=== PATIENT | male | born 1955 | race Caucasian/White ===

== ENCOUNTER 2024-05-31 20:34 | Inpatient (IN) | payer MEDICARE, OTHER ==
[~2024-05-31] VITALS: Ht 182.9 cm; Wt 113.4 kg
[~2024-05-31 20:34] MED LIST: LOSA1TAB2 PO; SULF1TAB44 PO; VALS80TA2 PO
[2024-05-31] MEDS ORDERED: LOSA50TA39 PO (20:46)
[2024-05-31] MEDS: IV NORMAL SALINE 1000 ML BAG IV ONE (21:15)
[2024-05-31 21:48] LABS: BASOPHILS # (AUTO) 0.1 K/UL (0.0-0.2); BASOPHILS % (AUTO) 0.9 % (0.0-2.0); DIFFERENTIAL COMMENT 1; EOSINOPHILS # (AUTO) 0.2 K/uL (0.0-0.7); EOSINOPHILS % (AUTO) 1.7 % (0.0-7.0); HEMATOCRIT 46.1 % (36.7-47.1); HEMOGLOBIN 15.4 g/dL (12.5-16.3); LYMPHOCYTES # (AUTO) 2.9 K/uL (0.8-4.8); LYMPHOCYTES % (AUTO) 25.8 % (20.5-51.5); MEAN CORPUSCULAR HEMOGLOBIN 29.2 uug (23.8-33.4); MEAN CORPUSCULAR HGB CONC 33 g/dL (32.5-36.3); MEAN CORPUSCULAR VOLUME 87.3 fL (73.0-96.2); MONOCYTES % (AUTO) 9.1 % (0.0-11.0); NEUTROPHILS # (AUTO) 6.9 K/uL (1.8-8.9); NEUTROPHILS % (AUTO) 62.5 % (38.5-71.5); PLATELET COUNT (AUTO) 270 K/uL (152-348); RED BLOOD CELL COUNT(AUTO) 5.28 MIL/uL (4.06-5.63); WHITE BLOOD COUNT (AUTO) 11.1 K/uL (3.6-10.2)
[2024-05-31 21:50] LABS: CALCIUM 8.8 mg/dL (8.5-10.1); CARBON DIOXIDE 26 mmol/L (21-32); CHLORIDE 105 mmol/L (98-107); CREATININE 1.1 mg/dL (0.6-1.3); GLUCOSE 103 mg/dL (74-106); POTASSIUM 3.5 mmol/L (3.5-5.1); SODIUM SERUM 144 mmol/L (136-145); UREA NITROGEN, BLOOD 17 mg/dL (7-18)
[2024-05-31 22:02] LABS: ALANINE AMINOTRANSFERASE 43 U/L (16-63); ALBUMIN 3.1 g/dL (3.4-5.0); ALKALINE PHOSPHATASE 96 U/L (50-136); ASPARTATE AMINOTRANSFERASE 20 U/L (15-37); BILIRUBIN,DIRECT 0.2 mg/dL (0.0-0.2); BILIRUBIN,TOTAL 0.8 mg/dL (0.2-1.0); NT-PRO BNP 2511 pg/mL (0-125); TOTAL PROTEIN, SERUM 8.2 g/dL (6.4-8.2)
[2024-05-31 22:03] LABS: THYROID STIMULATING HORMONE 1.688 mIU/mL (0.358-3.740)
[2024-05-31 22:09] LABS: MAGNESIUM 2.3 mg/dL (1.8-2.4)
[2024-05-31] MEDS ORDERED: CEFAZOLIN 1 G VIAL ONE (22:31)
[2024-05-31] MEDS ORDERED: DILTIAZEM HCL 50 MG IV ONE (22:31)
[2024-05-31] MEDS: DILTIAZEM HCL 25 MG IV IV ONE (22:37)
[2024-05-31] MEDS: CEFAZOLIN 2 G in IV DEXTROSE 5% 100 ML IV ONE (22:37)
[2024-05-31] MEDS ORDERED: MAGNESIUM HYDROXIDE 30 ML LIQUID UDC PO PRN (23:30)
[2024-05-31] MEDS ORDERED: ONDANSETRON 4 MG/2 ML VIAL IV PRN (23:30)
[2024-05-31] MEDS ORDERED: ACETAMINOPHEN 325 MG TABLET PO PRN (23:30)
[2024-05-31] MEDS ORDERED: REMEDY ESSENTIAL ZINC PASTE 113 GM TP PRN (23:30)
[2024-05-31] MEDS: POTASSIUM CHLORIDE 20 MEQ TAB.PRT.SR PO ONE (23:30)
[2024-05-31] MEDS ORDERED: DILTIAZEM HCL 30 MG TABLET ONE (23:38)
[2024-05-31] MEDS: DILTIAZEM HCL 30 MG TABLET PO ONE (23:39)
[2024-06-01] MEDS: VANCOMYCIN IV 1,000 MG in IV NORMAL SALINE 250 ML IV ONE (00:15)
[2024-06-01 00:45] VITALS: BP 145/97; TEMP 98.5; O2SAT 96
[2024-06-01] MEDS: METOPROLOL TARTRATE 50 MG TABLET PO SCH (00:58)
[2024-06-01] MEDS ORDERED: CEFTRIAXONE 1 G VIAL ONE (01:02)
[2024-06-01] MEDS ORDERED: VANCOMYCIN IV 200 ML ONE (01:02)
[2024-06-01] MEDS: CEFTRIAXONE 2 G in IV DEXTROSE 5% 100 ML IV SCH (01:34)
[2024-06-01] MEDS: POTASSIUM CHLORIDE 20 MEQ TAB.PRT.SR PO ONE (01:38)
[2024-06-01 04:15] VITALS: BP 119/70; TEMP 98.2; O2SAT 95
[2024-06-01] MEDS ORDERED: ENOXAPARIN SODIUM 120 MG/0.8 ML SYRINGE SQ SCH ×2 (05:47→09:00)
[2024-06-01] MEDS: PANTOPRAZOLE SODIUM 40 MG TABLET.DR PO SCH (06:21)
[2024-06-01 07:36] LABS: BASOPHILS % (AUTO) 0.3 % (0.0-2.0); EOSINOPHILS # (AUTO) 0.1 K/uL (0.0-0.7); EOSINOPHILS % (AUTO) 1.3 % (0.0-7.0); HEMATOCRIT 41.5 % (36.7-47.1); HEMOGLOBIN 13.9 g/dL (12.5-16.3); LYMPHOCYTES # (AUTO) 2.6 K/uL (0.8-4.8); LYMPHOCYTES % (AUTO) 24.3 % (20.5-51.5); MEAN CORPUSCULAR HEMOGLOBIN 29.7 uug (23.8-33.4); MEAN CORPUSCULAR HGB CONC 34 g/dL (32.5-36.3); MEAN CORPUSCULAR VOLUME 88.4 fL (73.0-96.2); MONOCYTES # (AUTO) 0.9 K/uL (0.1-1.30); MONOCYTES % (AUTO) 8.6 % (0.0-11.0); NEUTROPHILS % (AUTO) 65.5 % (38.5-71.5); PLATELET COUNT (AUTO) 268 K/uL (152-348); RED BLOOD CELL COUNT(AUTO) 4.69 MIL/uL (4.06-5.63); RED CELL DISTRIBUTION WIDTH 13.9 % (12.1-16.2); WHITE BLOOD COUNT (AUTO) 10.6 K/uL (3.6-10.2)
[2024-06-01 07:47] LABS: DIFFERENTIAL COMMENT 1
[2024-06-01 07:55] LABS: CALCIUM 8.3 mg/dL (8.5-10.1); CREATININE 1.1 mg/dL (0.6-1.3); MAGNESIUM 2.2 mg/dL (1.8-2.4); PHOSPHOROUS 3.2 mg/dL (2.5-4.9)
[2024-06-01 08:02] LABS: THYROID STIMULATING HORMONE 0.931 mIU/mL (0.358-3.740)
[2024-06-01] MEDS: DILTIAZEM HCL CD 240 MG CAP.SR.24H PO SCH (08:51)
[2024-06-01] MEDS: APIXABAN 5 MG TABLET PO SCH (08:56)
[2024-06-01] MEDS ORDERED: METOPROLOL TARTRATE 25 MG TABLET PO SCH (09:00)
[2024-06-01] MEDS ORDERED: ENOXAPARIN SODIUM 40 MG/0.4 ML DISP.SYRIN SQ SCH (09:00)
[2024-06-01] MEDS: VANCOMYCIN IV 1,250 MG in IV DEXTROSE 5% 250 ML IV SCH (11:06)
[2024-06-01 16:05] VITALS: BP 123/81; TEMP 98.2; O2SAT 97
[2024-06-01 20:00] VITALS: BP 125/92; TEMP 98.2; O2SAT 96
[2024-06-01 23:50] VITALS: BP 128/80; TEMP 97.6; O2SAT 95
[2024-06-02 04:30] VITALS: BP 131/95; TEMP 97.6; O2SAT 93
[2024-06-02 07:06] LABS: CALCIUM 8.5 mg/dL (8.5-10.1); POTASSIUM 3.6 mmol/L (3.5-5.1)
[2024-06-02 07:54] VITALS: BP 135/95; TEMP 98.4; O2SAT 96
[2024-06-02] MEDS: POTASSIUM CHLORIDE 20 MEQ POWDER PACKET GT ONE (08:58)
[2024-06-02] MEDS: DILTIAZEM HCL CD 180 MG CAP.SR.24H PO SCH (08:58)
[2024-06-02] MEDS: FUROSEMIDE 40 MG/4 ML VIAL IV ONE (08:58)
[2024-06-02] MEDS ORDERED: DILTIAZEM HCL CD 240 MG CAP.SR.24H PO SCH (09:00)
[2024-06-02 11:12] VITALS: BP 142/93; TEMP 98.2; O2SAT 92
[2024-06-02] MEDS: PROTEIN SUPPLEMENT (PROSTAT) 30 ML LIQUID PO SCH (14:28)
[2024-06-02] MEDS ORDERED: DOXY100T2 PO (17:25)
[2024-06-02] MEDS ORDERED: PANT40TA49 PO (17:25)
[2024-06-02] MEDS ORDERED: DILT240C88 PO (17:25)
[2024-06-02] MEDS ORDERED: CEPH500C2 PO (17:25)
[2024-06-02] MEDS ORDERED: APIX5TAB PO (17:25)
[2024-06-02] MEDS ORDERED: ACID1TAB4 PO (17:25)
[2024-06-02 18:08] VITALS: BP 141/76; TEMP 98.1; O2SAT 95
== END 2024-06-02 19:00 | disposition home or self-care (01) | DRG 308 ==
LOC: ER 20:36 → TELE3 23:24
PROVIDERS: ADMIT Nurse Practitioner Family; ATTEND Internal Medicine
DX: I48.0 Paroxysmal atrial fibrillation (principal); A41.9 Sepsis, unspecified organism; L03.116 Cellulitis of left lower limb; E44.1 Mild protein-calorie malnutrition; A46 Erysipelas; E88.09 Other disorders of plasma-protein metabolism, not elsewhere classified; Z68.33 Body mass index [BMI] 33.0-33.9, adult; E66.9 Obesity, unspecified; I11.9 Hypertensive heart disease without heart failure; I77.819 Aortic ectasia, unspecified site; Z86.39 Personal history of other endocrine, nutritional and metabolic disease; R59.0 Localized enlarged lymph nodes
CPT/HCPCS: 36415; 71045; 83735; 84100; 84443; 84484; 85025; 85730; 86140; 93005; 93307; A4606; A4663; G0378; J0690; J0696; J1650; J1940; J3370; J3490; J7040; J7050